=== PATIENT | male | born 1990 | race Hispanic/Latino ===

== ENCOUNTER 2017-09-02 21:31 | Inpatient (IN) | payer BC, MEDICAID ==
[2017-09-02 21:31] VITALS: BMI 24.3
[2017-09-02 22:27] LABS: BASO # 0.1 K/uL (0.0-0.2); BASO % 0.9 % (0.0-2.0); EOS # 0.2 K/uL (0.0-0.7); EOS % 2.2 % (0.0-4.0); HEMOGLOBIN 13.4 g/dL (12.0-18.0); LYMPH # 2.2 K/uL (1.0-4.3); LYMPH % 27.2 % (20.0-40.0); MEAN CELL VOLUME 90.9 fL (80.0-94.0); MEAN CORPUSCULAR HEMOGLOBIN 31.2 pg (27.0-31.0); MEAN CORPUSCULAR HGB CONC 34.4 g/dL (33.0-37.0); MEAN PLATELET VOLUME 7.2 fL (7.2-11.7); MONO # 0.6 K/uL (0.0-0.8); MONO % 7.7 % (0.0-10.0); NEUT # 5.1 K/uL (1.8-7.0); RBC 4.28 Mil/uL (4.40-5.90); RED CELL DISTRIBUTION WIDTH 13.5 % (11.5-14.5); WHITE BLOOD COUNT 8.1 K/uL (4.8-10.8)
[2017-09-02 22:41] LABS: URINE BILIRUBIN NEGATIVE (NEGATIVE); URINE BLOOD NEGATIVE (NEGATIVE); URINE CLARITY Clear (Clear); URINE COLOR Yellow (YELLOW); URINE GLUCOSE (UA) NORMAL (Normal); URINE LEUKOCYTE ESTERASE NEG Leu/uL (Negative); URINE PROTEIN NEGATIVE (NEGATIVE); URINE UROBILINOGEN NORMAL mg/dL (0.2-1.0)
[2017-09-02 22:44] LABS: ALB/GLOB RATIO 1.1 (1.0-2.1); ALBUMIN 3.7 g/dL (3.5-5.0); ALT/SGPT 112 U/L (21-72); AST/SGOT 59 U/L (17-59); BLOOD UREA NITROGEN 20 mg/dL (9-20); CALCIUM 8.3 mg/dl (8.6-10.4); GFR AFRICAN-AMERICAN > 60; GFR NON-AFRICAN AMERICAN > 60
[2017-09-02 22:46] LABS: ACETAMINOPHEN < 10.0 ug/mL (10.0-30.0); SALICYLATE < 1.0 mg/dL 1
[2017-09-02 22:57] LABS: BARBITURATES, UR NEGATIVE (NEGATIVE); BENZODIAZEPINES, UR NEGATIVE (NEGATIVE); PHENCYCLIDINE, UR NEGATIVE (NEGATIVE)
[2017-09-02 23:03] LABS: OPIATES, UR POSITIVE (NEGATIVE)
--- NOTE | 2017-09-02 23:29 | C.PDOC ---
History Of Present Illness 27 year old male today for evaluation of suicidal ideation and heroin abuse. Patient is brought in by his friends. Patient denies HI, hallucinations, fever, chills, CP, SOB. Time Seen by Provider: 09/02/17 22:13 Chief Complaint (Nursing): Psychiatric Evaluation History Per: Patient History/Exam Limitations: no limitations Onset/Duration Of Symptoms: Days Current Symptoms Are (Timing): Still Present Suicide/Self Injury Attempted (Context): None Modifying Factor(s): Other (Heroin) Associated Symptoms: Depression, Suicidal Thoughts. denies: Suicidal Plan Recent travel outside of the [place]: No Additional History Per: Patient, Friend Past Medical History Reviewed: Historical Data, Nursing Documentation, Vital Signs Vital Signs: Last Vital Signs Temp 98.2 F 09/02/17 22:01 Pulse 80 09/02/17 22:01 Resp 14 09/02/17 22:01 BP 118/72 09/02/17 22:01 Pulse Ox 98 09/02/17 23:30 - Medical History PMH: Pneumonia (2-) Denies: Diabetes, Hepatitis, HIV, HTN, Chronic Kidney Disease, Seizures, Sexually Transmitted Disease Surgical History: No Surg Hx - [facility] Procedures ALCOHOL DETOXIFICATION (10/21/14) INTRODUCTION OF SERUM/TOX/VACCINE INTO MUSCLE, PERC APPROACH (08/26/17) Family History: States: Unknown Family Hx - Social History Hx Tobacco Use: Yes Hx Alcohol Use: Yes Hx Substance Use: Yes - Immunization History Hx Tetanus Toxoid Vaccination: No Hx Influenza Vaccination: No Hx Pneumococcal Vaccination: No Review Of Systems Constitutional: Negative for: Fever, Chills Cardiovascular: Negative for: Chest Pain Respiratory: Negative for: Shortness of Breath Gastrointestinal: Negative for: Nausea, Vomiting, Abdominal Pain Skin: Negative for: Rash Neurological: Negative for: Weakness, Numbness Psych: Positive for: Depression, Suicidal ideation Physical Exam - Physical Exam Appears: Non-toxic, No Acute Distress, Other (flat affect) Skin: Normal Color, Warm, Dry, Other (B/L track dias on anticubital areas) Head: Atraumatic, Normacephalic Eye(s): bilateral: Normal Inspection Oral Mucosa: Moist Neck: Normal ROM, Supple Chest: Symmetrical Cardiovascular: Rhythm Regular Respiratory: Normal Breath Sounds, No Rales, No Rhonchi, No Wheezing Gastrointestinal/Abdominal: Soft, No Tenderness, No Guarding, No Rebound Extremity: Normal ROM, No Tenderness, No Swelling Neurological/Psych: Oriented x3, Normal Speech Gait: Steady ED Course And Treatment - Laboratory Results Result Diagrams: 09/02/17 22:24 09/02/17 22:24 Lab Interpretation: Abnormal (tox + opiates/cocaine) O2 Sat by Pulse Oximetry: 98 (ON RA) Pulse Ox Interpretation: Normal Reevaluation Time: 00:31 Reassessment Condition: Improved - Physician Consult Information Outcome Of Conversation: 0030: d/w Crisis, ok to admit to psych Medical Decision Making Medical Decision Making: Impression: SI and heroin abuse Plan: * LAbs * UA * 1:1 obs Disposition Doctor Will See Patient In The: Hospital Counseled Patient/Family Regarding: Studies Performed, Diagnosis - Disposition Disposition: HOSPITALIZED Disposition Time: 00:31 Condition: GOOD Forms: [facility] (Macedonian) - Clinical Impression Clinical Impression: Drug abuse, Depression - Scribe Statement The provider has reviewed the documentation as recorded by the Scribe Edward Willoughby All medical record entries made by the Scribe were at my direction and personally dictated by me. I have reviewed the chart and agree that the record accurately reflects my personal performance of the history, physical exam, medical decision making, and the department course for this patient. I have also personally directed, reviewed, and agree with the discharge instructions and disposition.
--- NOTE | 2017-09-03 01:42 | PCM.BM ---
<Daisy Vivar - Last Filed: 09/03/17 01:40> Treatment Plan Problems - Problems identified on initial assessmt Suicidal ideation Date Initiated: 09/03/17 Time Initiated: 01:15 Assessment reference: NA Status: Active Treatment assets and liabiliti Patient Assests: cooperative, ADL independent, good support system, negotiates basic needs Patient Liabilities: substance abuse - Milieu Protocol Maintain good personal hygiene: daily Encourage regular showers, daily Remind patient to perform daily oral care, daily Assist patient to perform ADL's Maintain personal safety: every shift Educate patient to report safety concerns to staff, every shift Monitor environment for contraband/sharps Medication safety: Monitor for expected outcome, potential side effects: every shift, Assess barriers to learning: every shift, Assess readiness for medication education: every shift <Benny Padron - Last Filed: 09/05/17 11:26> - Diagnosis (1) Depression Status: Acute Interventions: 09/05/17 11:26 * Assess/adjust medications daily and /or as needed * See patient on an individual basis 7x/week to assess symptoms of depression * Monitor for side effects & effectiveness of medications * (2) Opioid abuse Status: Acute Interventions: 09/05/17 11:27 * Assess 7x/week regarding severity of withdrawal * Educate regarding risks, benefits, side effects and alternatives of medications * Use Motivational Interviewing for abstinence * Use CBT for relapse prevention * Medication management for withdrawal symptoms * Encourage medication assisted treatment * <Heidi Saravia - Last Filed: 09/05/17 12:52> Family Contact Family involvement: Family/SO is involved Family contact: Patient declines to allow family contact at present - Goals for Treatment [facility]: [facility] Discharge/Continuing Care - Education Needs Education Needs: Patient Medication, Patient Diagnosis/Disease Process, Patient Coping Skills - Discharge Discharge Criteria: Free of Suicidal thoughts, Normal sleep pattern, Ability to care for self, No longer exhibiting s/s of withdrawal, Reduction of target symptoms Discharge to:: Substance Abuse Rehab - Treatment Team Participation Discussed with Family/SO: No Was Patient/Family/SO present at Treatment Team Meeting: Yes
--- NOTE | 2017-09-03 10:21 | PCM.PSYCH ---
Initial Psychiatric Evaluation - Initial Psychiatric Evaluation Type of Admission: Voluntary Legal Status: Capacity Chief Complaint (in patient's own words): I was feeling depressed and suicidal.' History of Present Illness and Precipitating Events: Pt is a 27 years old male, who came to the hospital with depressed mood and suicidal ideation. He denies any past history of patient psychiatric hospitalization. Also denies any history of follow-up with any psychiatrist in the past. Pt reported abusing 20 bags of heroin daily for the last five years and collateral damage that substance abuse has caused patient and his primary support group. His last abuse was yesterday almost 15 bags of heroin. Pt mentioned the loss of employment, strained family relations and poor coping skills as additional environmental stressors. Pt reported not being himself and wanting to as a result of the above mentioned stressors. Pt does not have a history of mental illness or psychiatric treatment despite a recent suicide attempt last month. Pt reported intentionally sniffing an excessive amount of heroin as to lethally overdose. Pt reported being transported to the nearest hospital where patient was Narcaned and treated as an Intentional Overdose. He reports depressed mood, feelings of hopelessness and helplessness, poor sleep and poor appetite. He reports withdrawal symptoms from heroin including nausea cramps, sweating, headaches and joint pains. He denies any auditory or visual hallucinations or any paranoid. Past medical history None reported Current Medications: Active Medications Generic Name Dose Route Start Last Admin Trade Name Freq PRN Reason Stop Dose Admin Pneumococcal Polyvalent Vaccine 0.5 ml 09/05/17 10:00 Pneumovax 23 Vaccine IM 09/05/17 10:01 .ONCE ONE Past Psychiatric History - Past Psychiatric History Previous Treatment History: None Pertinent Medical Hx (Current Medical&Sleep Prob, Allergies): Allergies Allergy/AdvReac Type Severity Reaction Status Date / Time No Known Allergies Allergy Verified 09/02/17 22:04 No Known Home Med [No Known Home Med] 10/21/14 Review of Systems - Review of Systems All systems: reviewed and no additional remarkable complaints except - Psychiatric Psychiatric: Anxiety, Irritability, Suicidal Ideation Mental Status Examination - Personal Presentation Personal Presentation: Looks stated age - Affect Affect: Constricted, Depressed - Motor Activity Motor Activity: Calm - Reliability in Providing Information Reliability in Providing Information: Fair - Speech Speech: Organized - Mood Mood: Depressed, Anxious - Formal Thought Process Formal Thought Process: No Impairment - Obsessions/Compulsions Obsessions: No Compulsions: No - Cognitive Functions Orientation: Person, Place, Situation, Time Sensorium: Alert Attention/Concentration: Attentive Abstract Thinking: [place] Estimate of Intelligence: Below average Judgement: Imparied, as evidence by: Poor judgement, Imparied, as evidence by: Lack of insight into illness - Risk Risk: Suicidal, Withdrawal, Diminished functioning - Strength & Assets Inventory Strength & Assets Inventory: Family support DSM 5 DX - DSM 5 DSM 5 Diagnosis: Bipolar disorder depressed severe without psychotic features Opioid use disorder severe Opioid withdrawal Cocaine use disorder moderate - Recommended/Plan of Treatment Treatment Recommendations and Plan of Treatment: Bipolar disorder depressed severe without psychotic features CBT Psychoeducation Supportive therapy, group therapy, individual therapy Paxil 10 mg daily Trazodone 50 mg by mouth daily at bedtime Seroquel 100 mg PO QHS Gabapentin 300 mg PO TID Opioid use disorder severe CBT Psychoeducation Supportive therapy, individual therapy Use [place] for abstinence Opioid withdrawal CBT Psychoeducation Supportive therapy, individual therapy Clonidine when necessary Methadone taper Cocaine use disorder moderate Monitor signs and symptoms Use [place] for abstinenceher ultrasound - Smoking Cessation Smoking Cessation Initiated: No
[2017-09-03] MEDS ORDERED: Aluminum Hydroxide/Magnesium Hydroxide Susp (30 mL) PO PRN (11:00)
[2017-09-04 08:33] VITALS: O2SAT 100
[2017-09-05] MEDS ORDERED: Pneumococcal 23-Valent Vaccine IM ONE (10:00)
--- NOTE | 2017-09-05 13:13 | PCM.PYCHPN ---
Psychiatric Progress Note - Psychiatric Progress Note Patient seen today, length of contact: 15 min Patient Chief Complaint: I am feeling little better.' Problems Identified/Issues Discussed: Patient seen and evaluated, chart reviewed and discussed with the nurse. Today patient reports some improvement in his irritability, and anxiety. He remained isolated and withdrawn. He still reports withdrawal symptoms including shakes, anxiety, back pains, cramps, headaches and sweating. Symptoms are improving but needs more time for stabilization. Supportive therapy and psychoeducation were given. Medication Change: Yes Medical Record Reviewed: Yes Mental Status Examination - Cognitive Function Orientation: Person, Place, Situation, Time Memory: Intact Attention: WNL Concentration: WNL Association: WNL Fund of Knowledge: Poor - Mood Mood: Depressed, Anxious - Affect Affect: Constricted, Depressed - Speech Speech: Soft - Formal Thought Process Formal Thought Process: No Impairment - Suicidal Ideation Suicidal Ideation: No - Homicidal Ideation Homicidal Ideation: No Goal/Treatment Plan - Goal/Treatment Plan Need for Continued Stay: Severe depression anxiety, Severe functional impairment Progress Toward Problem(s) and Goals/Treatment Plan: Bipolar disorder depressed severe without psychotic features CBT Psychoeducation Supportive therapy, group therapy, individual therapy Paxil 10 mg daily Trazodone 50 mg by mouth daily at bedtime Seroquel 100 mg PO QHS Gabapentin 300 mg PO TID Opioid use disorder severe CBT Psychoeducation Supportive therapy, individual therapy Use [place] for abstinence Opioid withdrawal CBT Psychoeducation Supportive therapy, individual therapy Clonidine when necessary Methadone taper Cocaine use disorder moderate Monitor signs and symptoms Use [place] for abstinenceher ultrasound
--- NOTE | 2017-09-05 13:13 | PCM.PYCHPN ---
Psychiatric Progress Note - Psychiatric Progress Note Patient seen today, length of contact: 15 min Patient Chief Complaint: I was feeling depressed and suicidal.' Problems Identified/Issues Discussed: Patient seen and evaluated, chart reviewed and discussed with the nurse. Today patient reports some improvement in his irritability, and anxiety. He still reports depressed mood and feelings of hopelessness. He remained isolated and withdrawn. He still reports withdrawal symptoms including shakes, anxiety, back pains, cramps, headaches and sweating. Symptoms are improving but needs more time for stabilization. Supportive therapy and psychoeducation were given. Medication Change: Yes Medical Record Reviewed: Yes Mental Status Examination - Cognitive Function Orientation: Person, Place, Situation, Time Memory: Intact Attention: WNL Concentration: Poor Association: WNL Fund of Knowledge: Poor - Mood Mood: Depressed, Anxious - Affect Affect: Constricted, Depressed - Speech Speech: Soft - Formal Thought Process Formal Thought Process: No Impairment - Suicidal Ideation Suicidal Ideation: No - Homicidal Ideation Homicidal Ideation: No Goal/Treatment Plan - Goal/Treatment Plan Need for Continued Stay: Severe depression anxiety, Severe functional impairment Progress Toward Problem(s) and Goals/Treatment Plan: Bipolar disorder depressed severe without psychotic features CBT Psychoeducation Supportive therapy, group therapy, individual therapy Paxil 10 mg daily Trazodone 50 mg by mouth daily at bedtime Seroquel 100 mg PO QHS Gabapentin 300 mg PO TID Opioid use disorder severe CBT Psychoeducation Supportive therapy, individual therapy Use [place] for abstinence Opioid withdrawal CBT Psychoeducation Supportive therapy, individual therapy Clonidine when necessary Methadone taper Cocaine use disorder moderate Monitor signs and symptoms Use [place] for abstinenceher ultrasound
[2017-09-06 06:17] VITALS: RESP 20
--- NOTE | 2017-09-06 14:46 | PCM.PYCHPN ---
Psychiatric Progress Note - Psychiatric Progress Note Patient seen today, length of contact: 15 min Patient Chief Complaint: I am feeling little better.' Problems Identified/Issues Discussed: Patient seen and evaluated, chart reviewed and discussed with the nurse. As per the staff patient is improving. Patient reports some improvement in his irritability, and anxiety. He remained isolated and withdrawn. He reports improvement in his sleep and still reports some withdrawal symptoms including headaches and sweating. Symptoms are improving but needs more time for stabilization. Supportive therapy and psychoeducation were given. Medication Change: Yes Medical Record Reviewed: Yes Mental Status Examination - Cognitive Function Orientation: Person, Place, Situation, Time Memory: Intact Attention: WNL Concentration: WNL Association: WNL Fund of Knowledge: Poor - Mood Mood: Depressed, Anxious - Affect Affect: Constricted - Speech Speech: Soft - Formal Thought Process Formal Thought Process: No Impairment - Suicidal Ideation Suicidal Ideation: No - Homicidal Ideation Homicidal Ideation: No Goal/Treatment Plan - Goal/Treatment Plan Need for Continued Stay: Severe depression anxiety, Severe functional impairment Progress Toward Problem(s) and Goals/Treatment Plan: Bipolar disorder depressed severe without psychotic features CBT Psychoeducation Supportive therapy, group therapy, individual therapy Paxil 10 mg daily Trazodone 50 mg by mouth daily at bedtime Seroquel 100 mg PO QHS Gabapentin 300 mg PO TID Opioid use disorder severe CBT Psychoeducation Supportive therapy, individual therapy Use [place] for abstinence Opioid withdrawal CBT Psychoeducation Supportive therapy, individual therapy Clonidine when necessary Methadone taper Cocaine use disorder moderate Monitor signs and symptoms Use [place] for abstinenceher ultrasound
[2017-09-07 06:27] VITALS: BP 115/63; PULSE 73; TEMP 97.6
--- NOTE | 2017-09-07 09:50 | PCM.PYCHDC ---
Mental Status Examination - Mental Status Examination Orientation: Person, Place, Situation, Time Memory: Intact Mood: Neutral Affect: Constricted Speech: Soft Attention: WNL Concentration: WNL Association: WNL Fund of Knowledge: WNL Formal Thought Process: No Impairment Description of patient's judgement and insight: GOOD, FAIR Psychotic Thoughts and Behaviors: denies any AVH Suicidal Ideation: No Current Homicidal Ideation?: No Discharge Summary - Discharge Note Reason for Hospitalization: Pt is a 27 years old male, who came to the hospital with depressed mood and suicidal ideation. He denies any past history of patient psychiatric hospitalization. Also denies any history of follow-up with any psychiatrist in the past. Pt reported abusing 20 bags of heroin daily for the last five years and collateral damage that substance abuse has caused patient and his primary support group. His last abuse was yesterday almost 15 bags of heroin. Pt mentioned the loss of employment, strained family relations and poor coping skills as additional environmental stressors. Pt reported not being himself and wanting to as a result of the above mentioned stressors. Pt does not have a history of mental illness or psychiatric treatment despite a recent suicide attempt last month. Pt reported intentionally sniffing an excessive amount of heroin as to lethally overdose. Pt reported being transported to the nearest hospital where patient was Narcaned and treated as an Intentional Overdose. He reports depressed mood, feelings of hopelessness and helplessness, poor sleep and poor appetite. He reports withdrawal symptoms from heroin including nausea cramps, sweating, headaches and joint pains. He denies any auditory or visual hallucinations or any paranoid. Consultations:: List each consultation separately and include: 1. Reason for request. 2. Findings. 3. Follow-up Summary of Hospital Course include:: 1. Description of specific treatment plan utilized for patients during their course of treatmen. 2. Summarize the time- course for resolution of acute symptoms and/or regressed behaviors. 3. Describe issues identified and worked on during hospitalization. 4. Describe medication utilized. 5. Describe medical problems identified and treated. 6. Reassessment of suicide risk Summary of Hospital Course: Pt is a 27 years old male, who came to the hospital with depressed mood and suicidal ideation. He denies any past history of patient psychiatric hospitalization. Also denies any history of follow-up with any psychiatrist in the past. Pt reported abusing 20 bags of heroin daily for the last five years and collateral damage that substance abuse has caused patient and his primary support group. His last abuse was yesterday almost 15 bags of heroin. Pt mentioned the loss of employment, strained family relations and poor coping skills as additional environmental stressors. Pt reported not being himself and wanting to as a result of the above mentioned stressors. Pt does not have a history of mental illness or psychiatric treatment despite a recent suicide attempt last month. Pt reported intentionally sniffing an excessive amount of heroin as to lethally overdose. Pt reported being transported to the nearest hospital where patient was Narcaned and treated as an Intentional Overdose. He reports depressed mood, feelings of hopelessness and helplessness, poor sleep and poor appetite. He reports withdrawal symptoms from heroin including nausea cramps, sweating, headaches and joint pains. He denies any auditory or visual hallucinations or any paranoid. Past medical history None reported - Diagnosis (1) Depression Current Visit: Yes Status: Acute (2) Opioid abuse Current Visit: Yes Status: Acute - Final Diagnosis (DSM 5) Condition upon Discharge: GOOD DSM 5: Bipolar disorder depressed severe without psychotic features Opioid use disorder severe Opioid withdrawal Cocaine use disorder moderate Disposition: HOME/ ROUTINE Follow-up Treatment Plan: Bipolar disorder depressed severe without psychotic features CBT Psychoeducation Supportive therapy, group therapy, individual therapy Paxil 10 mg daily Trazodone 50 mg by mouth daily at bedtime Seroquel 100 mg PO QHS Gabapentin 300 mg PO TID Opioid use disorder severe CBT Psychoeducation Supportive therapy, individual therapy Use [place] for abstinence Opioid withdrawal CBT Psychoeducation Supportive therapy, individual therapy Clonidine when necessary Methadone taper Cocaine use disorder moderate Monitor signs and symptoms Use [place] for abstinenceher ultrasound Prescriptions/Medication Reconciliation: QUEtiapine [Seroquel] 50 mg PO HS #30 tab
== END 2017-09-07 10:10 | disposition home or self-care (01) | DRG 430 ==
LOC: C.ER 21:31 → C.5E 09-03 00:32
PROVIDERS: ADMIT Psychiatry & Neurology Psychiatry; ATTEND Psychiatry & Neurology Psychiatry
PROC: GZ3ZZZZ Medication Management (ICD-10-PCS; principal; 2017-09-03)
PROC: GZHZZZZ Group Psychotherapy (ICD-10-PCS; 2017-09-03)
PROC: GZ56ZZZ Individual Psychotherapy, Supportive (ICD-10-PCS; 2017-09-03)
PROC: HZ2ZZZZ Detoxification Services for Substance Abuse Treatment (ICD-10-PCS; 2017-09-03)
PROC: HZ56ZZZ Individual Psychotherapy for Substance Abuse Treatment, Psychoeducation (ICD-10-PCS; 2017-09-03)
PROC: HZ59ZZZ Individual Psychotherapy for Substance Abuse Treatment, Supportive (ICD-10-PCS; 2017-09-03)
DX: F31.4 Bipolar disorder, current episode depressed, severe, without psychotic features (principal); F11.23 Opioid dependence with withdrawal; F14.20 Cocaine dependence, uncomplicated; R45.851 Suicidal ideations; F17.210 Nicotine dependence, cigarettes, uncomplicated; Z91.5 Personal history of self-harm

== ENCOUNTER 2018-07-14 23:53 | Emergency (ER) | payer BC, MEDICAID ==
[2018-07-14 23:53] VITALS: BMI 28.2
[2018-07-15 00:31] LABS: BASO % 0.4 % (0.0-2.0); EOS # 0.2 K/uL (0.0-0.7); EOS % 1.8 % (0.0-4.0); HEMOGLOBIN 13.8 g/dL (12.0-18.0); LYMPH # 2.2 K/uL (1.0-4.3); LYMPH % 25.8 % (20.0-40.0); MEAN CORPUSCULAR HEMOGLOBIN 30.5 pg (27.0-31.0); MEAN CORPUSCULAR HGB CONC 33.6 g/dL (33.0-37.0); MEAN PLATELET VOLUME 6.8 fL (7.2-11.7); MONO # 0.7 K/uL (0.0-0.8); MONO % 8.4 % (0.0-10.0); NEUT # 5.4 K/uL (1.8-7.0); NEUT % 63.6 % (50.0-75.0); NRBC % 0.1 % (0.0-2.0); RBC 4.52 Mil/uL (4.40-5.90); RED CELL DISTRIBUTION WIDTH 12.4 % (11.5-14.5); WHITE BLOOD COUNT 8.5 K/uL (4.8-10.8)
[2018-07-15 00:35] VITALS: BP 149/76; PULSE 90; RESP 20; TEMP 99.1; O2SAT 95
[2018-07-15 00:46] LABS: ALB/GLOB RATIO 1.4 (1.0-2.1); ALBUMIN 4.3 g/dL (3.5-5.0); ALT/SGPT 131 U/L (21-72); AST/SGOT 68 U/L (17-59); BLOOD UREA NITROGEN 24 mg/dL (9-20); CALCIUM 8.9 mg/dl (8.6-10.4); GFR NON-AFRICAN AMERICAN > 60
[2018-07-15 01:07] LABS: URINE BILIRUBIN NEGATIVE (NEGATIVE); URINE BLOOD NEGATIVE (NEGATIVE); URINE CLARITY Hazy (Clear); URINE COLOR Yellow (YELLOW); URINE GLUCOSE (UA) NORMAL (Normal); URINE LEUKOCYTE ESTERASE NEG Leu/uL (Negative); URINE PROTEIN NEGATIVE (NEGATIVE)
[2018-07-15 01:15] LABS: BARBITURATES, UR NEGATIVE (NEGATIVE); BENZODIAZEPINES, UR NEGATIVE (NEGATIVE)
[2018-07-15 01:32] LABS: OPIATES, UR POSITIVE (NEGATIVE); PHENCYCLIDINE, UR POSITIVE (NEGATIVE)
--- NOTE | 2018-07-15 06:18 | C.PDOC ---
History Of Present Illness I was unable to interview this patient. This patient eloped from the ED prior to my examination. Time Seen by Provider: 07/15/18 00:15 Chief Complaint (Nursing): Psychiatric Evaluation Past Medical History Vital Signs: Last Vital Signs Temp 99.1 F 07/15/18 00:11 Pulse 90 07/15/18 00:11 Resp 20 07/15/18 00:11 BP 149/76 07/15/18 00:11 Pulse Ox 95 07/15/18 00:11 - Medical History PMH: Anxiety, Bipolar Disorder, Pneumonia Denies: Diabetes, Hepatitis, HIV, HTN, Chronic Kidney Disease, Seizures, Sexually Transmitted Disease - [facility] Procedures ALCOHOL DETOXIFICATION (10/21/14) DETOXIFICATION SERVICES FOR SUBSTANCE ABUSE TREATMENT (09/03/17) GROUP PSYCHOTHERAPY (09/03/17) INDIV PSYCHOTHERAPY FOR SUBSTANCE ABUSE TREATMENT, SUPPORT (09/03/17) INDIV PSYCHOTHERAPY FOR SUBSTANCE ABUSE, PSYCHOEDUCATION (09/03/17) INDIVIDUAL PSYCHOTHERAPY, SUPPORTIVE (09/03/17) INTRODUCTION OF SERUM/TOX/VACCINE INTO MUSCLE, PERC APPROACH (08/26/17) MEDICATION MANAGEMENT (09/03/17) Family History: States: Unknown Family Hx - Social History Hx Tobacco Use: Yes Hx Alcohol Use: No Hx Substance Use: Yes - Immunization History Hx Tetanus Toxoid Vaccination: No Hx Influenza Vaccination: No Hx Pneumococcal Vaccination: No Review Of Systems Review Of Systems: ROS cannot be obtained secondary to pt's inabilty to answer questions. ED Course And Treatment - Laboratory Results Result Diagrams: 07/15/18 00:26 07/15/18 00:26 Lab Results: Total Bilirubin 0.5 mg/dL (0.2-1.3) 07/15/18 00:26 AST 68 U/L (17-59) H D 07/15/18 00:26 ALT 131 U/L (21-72) H 07/15/18 00:26 Alkaline Phosphatase 89 U/L (38-126) 07/15/18 00:26 Total Protein 7.3 g/dL (6.3-8.3) 07/15/18 00:26 Albumin 4.3 g/dL (3.5-5.0) 07/15/18 00:26 Globulin 3.0 gm/dL (2.2-3.9) 07/15/18 00:26 Albumin/Globulin Ratio 1.4 (1.0-2.1) 07/15/18 00:26 Urine Color Yellow (YELLOW) 07/15/18 00:16 Urine Clarity Hazy (Clear) 07/15/18 00:16 Urine pH 5.0 (5.0-8.0) 07/15/18 00:16 Ur Specific [place] 1.029 (1.003-1.030) 07/15/18 00:16 Urine Protein Negative mg/dL (NEGATIVE) 07/15/18 00:16 Urine Glucose (UA) Normal mg/dL (Normal) 07/15/18 00:16 Urine Ketones Negative mg/dL (NEGATIVE) 07/15/18 00:16 Urine Blood Negative (NEGATIVE) 07/15/18 00:16 Urine Nitrate Negative (NEGATIVE) 07/15/18 00:16 Urine Bilirubin Negative (NEGATIVE) 07/15/18 00:16 Urine Urobilinogen 2.0 mg/dL (0.2-1.0) 07/15/18 00:16 Ur Leukocyte Esterase Neg Naty/uL (Negative) 07/15/18 00:16 Urine WBC (Auto) < 1 /hpf (0-5) 07/15/18 00:16 Urine RBC (Auto) 2 /hpf (0-3) 07/15/18 00:16 O2 Sat by Pulse Oximetry: 95 Disposition - Disposition Disposition Time: 01:15 Condition: UNKNOWN Forms: [facility] (Algerian) - Clinical Impression Clinical Impression: Depression - Scribe Statement The provider has reviewed the documentation as recorded by the Scribe (Lashon Veliz) Provider Attestation: All medical record entries made by the Scribe were at my direction and personally dictated by me. I have reviewed the chart and agree that the record accurately reflects my personal performance of the history, physical exam, medical decision making, and the department course for this patient. I have also personally directed, reviewed, and agree with the discharge instructions and disposition.
== END 2018-07-15 00:18 | disposition left against medical advice (07) ==
LOC: C.ER 23:53
DX: F32.9 Major depressive disorder, single episode, unspecified (principal); F41.9 Anxiety disorder, unspecified

== ENCOUNTER 2018-07-15 07:51 | Emergency (ER) | payer SELFPAY ==
[2018-07-15 07:51] VITALS: BMI 28.2
[2018-07-15 08:38] VITALS: BP 109/65; PULSE 57; RESP 18; TEMP 98.1; O2SAT 100
--- NOTE | 2018-07-15 08:40 | C.PDOC ---
History Of Present Illness REQUESTING HEROIN AND COCAINE DETOX. ELOPED FROM ER @ 0115. DENIES SUICIDAL IDEATION "I ONLY SAID THAT BECAUSE I THOUGHT I WOULD GET INTO DETOX FASTER". EXAM CALM COOPERATIVE NO ACUTE INTOX NO SI/SA ACTIVE PSYCHOSIS REMAINDER NEG Time Seen by Provider: 07/15/18 07:59 History Per: Patient History/Exam Limitations: no limitations Past Medical History Reviewed: Historical Data, Nursing Documentation, Vital Signs Vital Signs: Last Vital Signs Temp 98.1 F 07/15/18 08:37 Pulse 57 L 07/15/18 08:37 Resp 18 07/15/18 08:37 BP 109/65 07/15/18 08:37 Pulse Ox 100 07/15/18 08:37 - Medical History PMH: Anxiety, Bipolar Disorder, Pneumonia Denies: Diabetes, Hepatitis, HIV, HTN, Chronic Kidney Disease, Seizures, Sexually Transmitted Disease Surgical History: No Surg Hx - [facility] Procedures ALCOHOL DETOXIFICATION (10/21/14) DETOXIFICATION SERVICES FOR SUBSTANCE ABUSE TREATMENT (09/03/17) GROUP PSYCHOTHERAPY (09/03/17) INDIV PSYCHOTHERAPY FOR SUBSTANCE ABUSE TREATMENT, SUPPORT (09/03/17) INDIV PSYCHOTHERAPY FOR SUBSTANCE ABUSE, PSYCHOEDUCATION (09/03/17) INDIVIDUAL PSYCHOTHERAPY, SUPPORTIVE (09/03/17) INTRODUCTION OF SERUM/TOX/VACCINE INTO MUSCLE, PERC APPROACH (08/26/17) MEDICATION MANAGEMENT (09/03/17) Family History: States: No Known Family Hx - Social History Hx Tobacco Use: Yes Hx Alcohol Use: Yes Hx Substance Use: Yes - Immunization History Hx Tetanus Toxoid Vaccination: No Hx Influenza Vaccination: No Hx Pneumococcal Vaccination: No Review Of Systems Except As Marked, All Systems Reviewed And Found Negative. Constitutional: Negative for: Fever, Chills Psych: Negative for: Suicidal ideation Physical Exam - Physical Exam Appears: Other (calm, cooperative, no acute intoxication) Skin: Normal Color, Warm, Dry Head: Atraumatic, Normacephalic Eye(s): bilateral: Normal Inspection Nose: Normal Oral Mucosa: Moist Cardiovascular: Rhythm Regular Respiratory: Other (NARD) Neurological/Psych: Oriented x3, Normal Speech, Other (pysch: no SI/SA, no active psychosis) ED Course And Treatment - Laboratory Results Result Diagrams: 07/15/18 08:43 O2 Sat by Pulse Oximetry: 100 (RA) Pulse Ox Interpretation: Normal Progress - Re-Evaluation Re-evaluation Note: 07/15/18 08:40 PENDING CRISIS SCREEN FOR DETOX QUALIFICATION 07/15/18 08:44 PER CRISIS D/W DR CHAPMAN PT DOES NOT MEET CRITERIA FOR INPATIENT DETOX. OUTPT INFO GIVEN Disposition Counseled Patient/Family Regarding: Diagnosis, Need For Followup - Disposition Referrals: OUTPATIENT,DETOX [Other] Disposition: HOME/ ROUTINE Disposition Time: 08:45 Condition: GOOD Additional Instructions: FOLLOW UP DETOX CENTER REFERRALS GIVEN TO YOU BY CRISIS TEAM. Instructions: Drug Abuse and Drug Addiction (DC) Forms: [employer] ([place]) - Clinical Impression Clinical Impression: Drug abuse - Scribe Statement The provider has reviewed the documentation as recorded by the Yanibe Alice Solitario Provider Attestation: All medical record entries made by the Scribe were at my direction and personally dictated by me. I have reviewed the chart and agree that the record accurately reflects my personal performance of the history, physical exam, medical decision making, and the department course for this patient. I have also personally directed, reviewed, and agree with the discharge instructions and disposition.
[2018-07-15 08:59] LABS: HEMOGLOBIN 13.6 g/dL (12.0-18.0); MEAN CELL VOLUME 90.9 fL (80.0-94.0); MEAN CORPUSCULAR HEMOGLOBIN 30.7 pg (27.0-31.0); MEAN CORPUSCULAR HGB CONC 33.7 g/dL (33.0-37.0); MEAN PLATELET VOLUME 7.1 fL (7.2-11.7); RBC 4.43 Mil/uL (4.40-5.90); RED CELL DISTRIBUTION WIDTH 12.8 % (11.5-14.5); WHITE BLOOD COUNT 7.1 K/uL (4.8-10.8)
== END 2018-07-15 09:25 | disposition home or self-care (01) ==
LOC: C.ER 07:51
DX: F19.10 Other psychoactive substance abuse, uncomplicated (principal)